=== PATIENT | male | born 1960 | race Caucasian/White ===

== ENCOUNTER 2022-12-19 16:40 | Inpatient (IN) | payer OTHER ==
[~2022-12-19] VITALS: Ht 170.2 cm; Wt 62.1 kg
[2022-12-19] MEDS ORDERED: MORPHINE SULFATE 4 MG/ML CPJ (NOT FOR IM USE) IV STA (19:24)
[2022-12-19] MEDS ORDERED: ONDANSETRON HCL 4MG/2ML INJ IV STA (19:24)
[2022-12-19] MEDS ORDERED: SODIUM CHLORIDE 0.9% 1000ML BAG (SEPSIS BOLUS) IV ONE (19:30)
[2022-12-19] MEDS ORDERED: PIPERACILLIN/TAZ 3.375G PREMIX 50 ML IV ONE (19:30)
[2022-12-19] MEDS ORDERED: VANCOMYCIN 1G PREMIX 200 ML IV ONE (19:30)
[2022-12-19 20:28] LABS: BASOPHILS % 0.1 % (0.0-2.0); HEMATOCRIT. 35.5 % (42.0-52.0); HEMOGLOBIN. 11.9 g/dL (14.0-18.0); LYMPHOCYTES % 7.1 % (20.0-50.0); MEAN CORPUSCULAR HEMOGLOBIN 28.1 pg (28.0-32.0); MEAN CORPUSCULAR VOLUME 83.5 fL (80.0-94.0); MEAN PLATELET VOLUME 7.5 fl (7.4-10.4); MONOCYTES % 6.7 % (2.0-8.0); NEUTROPHILS % 85.1 % (40.0-76.0); PLATELET 246 x1000/uL (130-400); RED BLOOD CELL COUNT 4.25 mill/uL (4.7-6.1); RED CELL DISTRIBUTION WIDTH 15.7 % (11.6-14.6)
[2022-12-19 20:32] LABS: CHLORIDE 100 mEq/L (98-107)
[2022-12-19 20:34] LABS: PROTHROMBIN TIME 10.3 sec (9.6-11.0)
[2022-12-19] MEDS ORDERED: PIPERACILLIN/TAZ 3.375G PREMIX 50 ML IV NR (22:45)
[2022-12-19] MEDS ORDERED: MORPHINE SULFATE 4 MG/ML CPJ (NOT FOR IM USE) IV NR (22:45)
[2022-12-19] MEDS ORDERED: VANCOMYCIN 1G PREMIX 200 ML IV NR (22:45)
[2022-12-19] MEDS ORDERED: ONDANSETRON HCL 4MG/2ML INJ IV NR (22:45)
[2022-12-19] MEDS ORDERED: TETANUS, DIPHTHERIA, PERTUSSIS VAC/PF 0.5ML (>10YR OLD) IM ONE (23:00)
[2022-12-19] MEDS ORDERED: TOPUD MT (23:03)
[2022-12-20] MEDS ORDERED: IOHEXOL-300 100 ML BOTTLE ONE (04:31)
[2022-12-20] MEDS ORDERED: PIPERACILLIN/TAZ 3.375G PREMIX 50 ML IV ONE ×2 (06:45→12:00)
[2022-12-20] MEDS ORDERED: DEXT 5%/0.45% NACL KCL 20MEQ/L 1,000 ML IV ONE (08:30)
[2022-12-20] MEDS ORDERED: MORPHINE SULFATE 4 MG/ML CPJ (NOT FOR IM USE) IV STA (10:35)
[2022-12-20] MEDS ORDERED: ONDANSETRON HCL 4MG/2ML INJ IV STA (10:35)
[2022-12-20] MEDS: VANCOMYCIN 1G PREMIX 200 ML IV SCH ×2 (11:03→17:17)
[2022-12-20 18:17] LABS: CLARITY URINE CLEAR (CLEAR); COLOR URINE YELLOW (YELLOW); KETONES URINE NEGATIVE (NEGATIVE); LEUKOCYTE ESTERASE URINE NEGATIVE (NEGATIVE); NITRITE URINE POSITIVE (NEGATIVE); OCCULT BLOOD URINE 1+ (NEGATIVE); PH URINE 6.5 (4.5-8.0); PROTEIN URINE 1+ (NEGATIVE); SPECIFIC GRAVITY URINE 1.047 (1.005-1.030)
[2022-12-20 18:33] LABS: *AMPHETAMINES SCREEN URINE NEGATIVE (NEGATIVE); *BARBITURATES SCREEN URINE NEGATIVE (NEGATIVE); *BENZODIAZEPINES SCREEN URINE NEGATIVE (NEGATIVE); *COCAINE SCREEN URINE PRESUMTIVE POSITIVE (NEGATIVE); CANNABINOID URINE SCREEN NEGATIVE (NEGATIVE); METHADONE URINE SCREEN NEGATIVE (NEGATIVE); OPIATES URINE SCREEN PRESUMTIVE POSITIVE (NEGATIVE); PHENCYCLIDINE URINE SCREEN NEGATIVE (NEGATIVE)
[2022-12-20] MEDS ORDERED: MORPHINE SULFATE 4 MG/ML CPJ (NOT FOR IM USE) IV ONE (23:15)
[2022-12-21] MEDS ORDERED: MORPHINE SULFATE 4 MG/ML CPJ (NOT FOR IM USE) IV ONE (06:15)
[2022-12-21 12:40] VITALS: BP 137/90
[2022-12-21] MEDS ORDERED: NALOXONE HCL 0.4MG/ML VIAL IV PRN (13:30)
[2022-12-21] MEDS ORDERED: CEFTRIAXONE 1GM PREMIX 50 ML IV SCH (13:30)
[2022-12-21] MEDS ORDERED: ONDANSETRON HCL 4MG/2ML INJ IV PRN (13:30)
[2022-12-21] MEDS ORDERED: KETOROLAC 15MG/ML VIAL IV PRN (13:30)
[2022-12-21] MEDS ORDERED: POTASSIUM CHLORIDE 20MEQ TABLET SR PO NR (13:30)
[2022-12-21] MEDS ORDERED: HYDROCODONE/ACETAMINOPHEN 5/325MG TABLET PO PRN (13:30)
[2022-12-21] MEDS ORDERED: CEFTRIAXONE 1,000 MG in DEXTROSE 5% WATER 50 ML IV SCH (14:00)
[2022-12-21 15:21] LABS: HEMATOCRIT. 38.3 % (42.0-52.0); HEMOGLOBIN. 12.7 g/dL (14.0-18.0); MEAN CORPUSCULAR VOLUME 84.5 fL (80.0-94.0); MEAN PLATELET VOLUME 7.7 fl (7.4-10.4); PLATELET 264 x1000/uL (130-400); RED BLOOD CELL COUNT 4.53 mill/uL (4.7-6.1); RED CELL DISTRIBUTION WIDTH 15.5 % (11.6-14.6)
[2022-12-21 15:29] LABS: CHLORIDE 94 mEq/L (98-107)
[2022-12-21] MEDS ORDERED: VANCOMYCIN 750MG PREMIX 150 ML IV SCH (16:00)
[2022-12-21 18:13] VITALS: BP 137/90
[2022-12-21 19:58] VITALS: BP 138/102
[2022-12-21 21:02] LABS: NUCLEATED RED BLOOD CELLS 1 /100 WBC; PLATELET ESTIMATE NORMAL
== END 2022-12-21 21:10 | disposition left against medical advice (07) | DRG 383 ==
LOC: ER 16:40 → MICUSO 12-21 06:08 → 4WST 12-21 12:35
PROVIDERS: ADMIT Internal Medicine; ATTEND Internal Medicine
DX: L03.114 Cellulitis of left upper limb (principal); E44.0 Moderate protein-calorie malnutrition; I10 Essential (primary) hypertension; E87.6 Hypokalemia; F14.90 Cocaine use, unspecified, uncomplicated; F17.210 Nicotine dependence, cigarettes, uncomplicated; Z68.21 Body mass index [BMI] 21.0-21.9, adult; Z20.822 Contact with and (suspected) exposure to COVID-19
CPT/HCPCS: 36415; 71045; 73130; 73201; 80048; 80053; 80305; 81001; 83605; 84145; 84484; 85025; 87426; 90715; 93005; 96365; 96367; 96375; 99285; C9803; J0696; J1885; J2270; J2405; J2543; J3370; J7030; J7060; Q9967